=== PATIENT | male | born 1975 | race Two or more races ===

== ENCOUNTER 2024-06-02 14:52 | Emergency (ER) | payer OTHER ==
[~2024-06-02] VITALS: Ht 177.8 cm; Wt 83.9 kg
[2024-06-02 15:39] LABS: BASOPHILS % 0.4 % (0.0-1.0); EOSINOPHILS # (AUTO) 0.1 (0.0-0.4); EOSINOPHILS % 1.8 % (0.0-6.0); HEMATOCRIT 42.3 % (38.2-49.6); HEMOGLOBIN 14.2 g/dL (14.0-18.0); LYMPHOCYTES # (AUTO) 1.2 (1.0-3.2); LYMPHOCYTES % 26.8 % (18.0-39.1); MEAN CORPUSCULAR HEMOGLOBIN 33.1 pg (28-32); MEAN CORPUSCULAR HGB CONC 33.6 g/dL (31-35); MEAN CORPUSCULAR VOLUME 98.6 fL (81-99); MONOCYTES # (AUTO) 0.4 (0.2-0.8); MONOCYTES % 8.6 % (4.4-11.3); NEUTROPHILS # (AUTO) 2.8 (2.1-6.9); NEUTROPHILS % 62.2 % (38.7-80.0); PLATELET COUNT 227 x10e3/uL (140-360); RED BLOOD COUNT 4.29 x10e6/uL (4.3-5.7); RED CELL DISTRIBUTION WIDTH 11.9 % (11.7-14.4); WHITE BLOOD COUNT 4.56 x10e3/uL (4.8-10.8)
[2024-06-02 16:01] LABS: ANION GAP 14.7 mmol/L (8-16); CALCIUM 9.3 mg/dL (8.4-10.2); CREATININE, SERUM 0.96 mg/dL (0.72-1.25); POTASSIUM 3.7 mmol/L (3.5-5.1)
[2024-06-02 16:24] VITALS: BP 159/98; PULSE 78
[2024-06-02] MEDS: CARVEDILOL 12.5 MG TAB PO ONE (16:24)
[2024-06-02] MEDS: LISINOPRIL 10 MG TAB PO ONE (16:24)
[2024-06-02] MEDS ORDERED: COREG6.25 MG PO (16:41)
[2024-06-02] MEDS ORDERED: LISINOPRIL10 MG PO (16:41)
[2024-06-02 17:42] VITALS: PULSE 78; RESP 16; TEMP 98.3; O2SAT 100
== END 2024-06-02 17:44 | disposition home or self-care (01) ==
LOC: ER 14:59
DX: I10 Essential (primary) hypertension (principal)
CPT/HCPCS: 36415; 80048; 84484; 85025; 99284